=== PATIENT | male | born 2000 | race Caucasian/White ===

== ENCOUNTER 2022-10-28 04:41 | Emergency (ER) | payer OTHER ==
[~2022-10-28] VITALS: Ht 157.5 cm; Wt 46.3 kg
[2022-10-28] MEDS ORDERED: IBUPROFEN 400MG TABLET PO ONE (06:15)
[2022-10-28 06:36] VITALS: BP 119/86
[2022-10-28] MEDS ORDERED: TOPUD PO (07:14)
== END 2022-10-28 07:35 | disposition home or self-care (01) ==
LOC: ER 04:41
DX: S60.011A Contusion of right thumb without damage to nail, initial encounter (principal); X58.XXXA Exposure to other specified factors, initial encounter; Y93.89 Activity, other specified; Y92.89 Other specified places as the place of occurrence of the external cause; Y99.8 Other external cause status; J45.909 Unspecified asthma, uncomplicated
CPT/HCPCS: 73130; 99283; Z7610